=== PATIENT | female | born 1965 | race Caucasian/White ===

== ENCOUNTER 2023-02-23 12:59 | Emergency (ER) | payer OTHER ==
--- OUTSIDE RECORDS SUMMARY | 2023-02-23 13:02 | XMS REPORT | Continuity of Care Document ---
:1965 Author Organization [facility] t Address [address] [place] [address] Care Team Providers Name Role Phone Shala Gold MD Primary Care Physician Doctor Unassigned, [place] Attending Clinician Unavailable SHALA GOLD Attending Clinician Unavailable CHRIS SANTANA Attending Clinician Unavailable VIRGILIO RICHARDSON Attending Clinician Unavailable Shala Gold MD Attending Clinician 2, [facility] Attending Clinician Unavailable Chris Santana MD Attending Clinician Payers Payer Name Policy Type Policy Number Effective Date Expiration Date S ource Problems Condition Condition Condition Status Onset Resolution Last Treating Co mments Source Name Details Category Date Date Treatment Clinician Date Elevated Elevated Disease Active Unive rs blood blood 8-16 ity of pressure pressure 00:00: [place] reading reading 00 Medical without without Branch diagnosis diagnosis of of hypertensi hypertensi on on Chronic Chronic Disease Active Univers allergic allergic 8-16 ity of rhinitis rhinitis 00:00: [place] 00 Medical Branch Screening Screening Disease Active Uni vers for for 8-16 [place] malignant [place] of colon of colon Branch Need for Need for Disease Active Unive rs hepatitis hepatitis 8-16 ity of C C 00:00: [place] screening screening 00 Medi robbie test test Branch TSH TSH Disease Active Univers elevation elevation 8-16 ity of 00:00: [place] 00 Medical Branch Acquired Acquired Disease Active Unive rs hypothyroi hypothyroi 8-15 it y of dism dism 00:00: [address] Breast Breast Disease Active Univers cyst, left cyst, left 15 it y of 00:00: [address] Allergies, Adverse Reactions, Alerts Allergy Allergy Status Severity Reaction(s) Onset Inactive Treating Comm ents Source Name Type Date Date Clinician NO KNOWN Drug Active Univers ALLERGIE Class ity of S [facility] Social History Social Habit Start Date Stop Date Quantity Comments Source Sexual orientation Univer sity [facility] Exposure to 2021-11-18 2021-11-28 Not sure [facility] SARS-CoV-2 (event) 00:00:00 10:21:00 [facility] History of Social 2021-11-28 2021-11-28 Univers ity of function 00:00:00 00:00:00 [facility] Alcohol intake 2021-11-27 2021-11-27 Ex-drinker [facility] 00:00:00 00:00:00 (finding) [facility] Tobacco use and 2021-11-23 2021-11-23 Smokeless Universit y of exposure 00:00:00 00:00:00 tobacco non-user [facility] Sex Ass[birth year] Universit y of 00:00:00 00:00:00 [facility] Smoking Status Start Date Stop Date Source Never smoked tobacco [facility] Medications Ordered Filled Start Stop Current Ordering Indication Dosage Frequency Signature Comments Components Source Medication Medication Date Date Medication? Clinician (SIG) Name Name Levothyroxi 2021- No Take by Un kirby ne 75 mcg 11-28 mouth. ity of capsule 11:09: 00:00 [place] 11 :00 [facility] levothyroxi Yes [id number] 75ug Take 1 Univers ne 8-16 tablet by ity of (EUTHYROX) 00:00: mouth [place] 75 mcg 00 every Medical tablet morning. Branch levothyroxi Yes [id number] 75ug Take 1 Univers ne 8-16 tablet by ity of (EUTHYROX) 00:00: mouth [place] 75 mcg 00 every Medical tablet morning. Branch levothyroxi Yes [id number] 75ug Take 1 Univers ne 8-16 tablet by ity of (EUTHYROX) 00:00: mouth [place] 75 mcg 00 every Medical tablet morning. Branch levothyroxi 2021- No [id number] 75ug Take 1 [facility] 11-23 tablet by ity of (EUTHYROX) 00:00: 00:00 mouth [place] 75 mcg 00 :00 every Medical tablet morning. Branch Vital Signs Vital Name Observation Time Observation Value Comments Source Systolic blood 2021-11-28 15:21:00 144 mm[Hg] [facility]iver [facility] Diastolic blood 2021-11-28 15:21:00 85 [facility]Hg[facility] 2021-11-28 15:21:00 71 /min [facility] Body temperature 2021-11-28 15:21:00 36.72 [facility] Respiratory rate 2021-11-28 15:21:00 18 /min [facility] Body height 2021-11-28 15:21:00 172.7 cm [facility] Body weight 2021-11-28 15:21:00 86.728 kg [facility] BMI 2021-11-28 15:21:00 29.07 kg/m2 [facility] Oxygen saturation in 2021-11-28 15:21:00 98 /min [facility] Arterial blood by [facility] Pulse oximetry [place] Procedures Procedure Date / Time Performing Clinician Source Performed AUTHORIZATION FOR 2022-07-20 05:01:00 Doctor Unassigned, No [facility] RELEASE OF PHI Name [facility] Encounters Start End Encounter Admission Attending Care Care Encounter Source Date/Time Date/Time Type Type Clinicians Facility Department ID 2022-07-20 2022-07-20 Orders Doctor ALEJANDRE [id number] [id number] Univers 00:00:00 00:00:00 Only UnassignedPOWER [id number] [facility] [id number] Jesu as [id number] [address] 2022-02-28 2022-02-28 Outpatient R KVNG [facility] [id number] Univers 09:20:00 09:20:00 SHALA winters [facility] 2022-02-28 2022-02-28 Outpatient R KVNG [facility] [id number] Univers 09:20:00 09:20:00 SHALA singh [facility] 2021-12-26 2021-12-26 Outpatient R SETHERFELIXN [facility] [id number] Univers 00:00:00 00:00:00 ity [facility] 2021-12-12 2021-12-12 Outpatient R RICHARDSON [facility] [id number] Univers 10:15:00 10:15:00 VIRGILIO azevedodella o f [facility] 2021-11-29 2021-11-29 Patient Doctor PILI [id number] Univers 00:00:00 00:00:00 Secure Msg Unassigned, P[place] [id number] ity [facility] [id number] Jesu as [id number] [address] 2021-11-28 2021-11-28 [facility] [id number] Univers 10:00:00 11:22:42 Visit Shala COLLIER [id number] i ty [facility] [id number] [place] PROF[place] [phone] [place] dical [address] 2021-11-28 2021-11-28 [facility] [id number] Univers 10:00:00 11:22:42 SHALA singh [facility] 2021-11-28 2021-11-28 Outpatient R KVNG [facility] [id number] Univers 10:00:00 11:22:42 SHALA singh [facility] 2021-11-28 2021-11-28 Outpatient R KVNG [facility] [id number] Univers 10:00:00 10:00:00 SHALA singh [facility] 2021-11-27 2021-11-27 Test Desk Operator 2, [facility] [id number] Univers 09:15:00 09:30:00 Visit Chris Santana [id number] ity [facility] [id number] [place] [phone] Me dical NAL [address] [facility] 2021-11-27 2021-11-27 Outpatient R CHRIS SANTANA [facility] [id number] Univers 09:15:00 09:15:00 ity of [facility] 2021-11-27 2021-11-27 Outpatient R CHRIS SANTANA [facility] [id number] Univers 09:15:00 09:15:00 ity of [facility] 2021-11-23 2021-11-23 Outpatient R CHRIS SANTANA [facility] [id number] Univers 14:00:00 14:55:28 ity [facility] 2021-11-23 2021-11-23 Outpatient R CHRIS SANTANA [facility] [id number] Univers 14:00:00 14:55:28 ity of [facility] 2021-11-23 2021-11-23 Office Chris Santana [facility] [id number] Univers 14:00:00 14:55:28 [facility] [id number] i ty [place] [id number] [phone] [place] dical NAL [address] [facility] 2021-11-23 2021-11-23 Orders Doctor PILI [id number] Univers 00:00:00 00:00:00 Only Unassigned, [place] [id number] ity of [place] [facility] [id number] Jesu as [phone] [place] [address] Branch Results This patient has no known results.
[2023-02-23] MEDS ORDERED: MORPHINE 4 MG/ML SYR ONE (13:51)
[2023-02-23] MEDS ORDERED: ONDANSETRON 4 MG/2 ML VIAL ONE (13:51)
[2023-02-23] MEDS ORDERED: NA CHLORIDE 0.9% 1,000 ML ONE (13:51)
[2023-02-23] MEDS ORDERED: KETOROLAC 30 MG/ML INJ ONE (13:51)
[2023-02-23 14:01] LABS: Absolute Lymphocytes (CBC) 1.1 K/uL (0.7-4.9); Hematocrit 36.2 % (36.0-45.0); Lymphocytes % 13.1 % (15.3-44.8); MCV 85.5 fL (80-100); MPV 7.6 fL (7.6-11.3); Platelets 379 thou/uL (152-406); RBC Red Blood Cell Count 4.23 M/uL (3.86-4.86)
[2023-02-23 14:19] LABS: Albumin 3.5 g/dL (3.4-5.0); Bilirubin Total 0.3 mg/dL (0.2-1.0); Potassium 3.9 mEq/L (3.5-5.1)
--- NOTE | 2023-02-23 14:26 | RAD REPORT ---
EXAM DESCRIPTION: CT - Abdomen Pelvis Wo Contrast - 02/23/2023 1:40 pm CLINICAL HISTORY: ABD PAIN COMPARISON: No comparisons TECHNIQUE: Thin cut axial CT imaging of the abdomen and pelvis was performed without IV contrast. Mu ltiplanar reformats were generated and reviewed. All CT scans are performed using dose optimization technique as appropriate and may include automated exposure control or mA/KV adjustment according to patient size. FINDINGS: Small right layering pleural effusion. Left subsegmental atelectasis The liver, spleen, adrenal glands, and pancreas show no suspicious findings. Gallbladder and biliary tree are also without suspicious finding. Symmetric renal contour, without suspicious parenchymal findings within limits of noncontrast techniq ue. Lseo-gs-rqvptnen right hydroureteronephrosis. The dilated ureter transitions to nondistended uret er at the level of the mid to distal ureter on axial images 66-67, likely due to 4 millimeter calcifi c density suggesting a calculus, rather than a focus of atherosclerotic calcification. No other nonob structing right renal calculi at the upper pole largest measuring 6 millimeter. No dilated bowel loops or bowel wall thickening. No free air, free fluid or inflammatory stranding. N o hernia, mass or bulky lymphadenopathy. Retroverted uterus. 4.2 cm anterior wall fibroid. The urinar y bladder is without significant finding. No suspicious bony findings. IMPRESSION: Mild to moderate right hydroureteronephrosis. Suspected 4 millimeter mid to distal right ureter obstructing calculus. Other nonobstructing right upper pole renal calculi up to 6 millimeter. Small right layering pleural effusion and other incidental findings as above. The findings were communicated to Yohan Villarreal on 02/23/2023 at 14:21 hours.
[2023-02-23 15:16] LABS: Specific Gravity 1.005 (1.005-1.030); Urine Bacteria <20 /HPF (<20); Urine Bilirubin NEGATIVE (Negative); Urine Blood 1+ (Negative); Urine Clarity Clear (Clear); Urine Color Colorless (Yellow); Urine Glucose NEGATIVE (Negative); Urine Protein NEGATIVE (Negative); Urine RBC <5 /HPF (None Seen); Urine Urobilinogen Normal (Normal); Urine pH 6.5 (5.0-7.0)
--- NOTE | 2023-02-23 15:26 | EDPHYS ---
Physician Documentation [facility] Name: Astrid Ellis Age: 57 yrs Sex: Female : 1965 Arrival Date: 02/23/2023 Time: 12:59 Bed 7 Private MD: ED Physician Yohan Villarreal HPI: 02/23 13:39 This 57 yrs old Female presents to ER via Ambulatory with complaints of RIGHT ec2 SIDE PAIN. 13:39 Patient arrives today due to concern for right flank pain. Patient reports that she has ec2 been having intermittent right flank pain for the past 1.5 weeks. Patient reports that the pain is intermittent without specific relieving exacerbating factors. Patient reports some occasional nausea with the pain. Denies any vomiting or diarrhea, denies any urinary problems. Patient reports no similar types of pain. Patient reports no abdominal pain. She reports no previous abdominal surgeries.. Historical: - Allergies: 13:16 No Known Allergies; hb - PMHx: 13:16 None; hb - PSHx: 13:16 skin graft; hb - Immunization history:: Client reports having NOT received the Covid vaccine. - Social history:: Smoking status: Patient denies any tobacco usage or history of. ROS: 13:39 Constitutional: as per hpi ec2 Exam: 13:39 Constitutional: GEN: NAD Head: atraumatic Eyes: EOMI Ears: External ears are ec2 normal. CV: regular rate LUNGS: no respiratory distress ABD: non-distended, soft, nontender, no guarding, nonrigid, right and left CVA without TTP SKIN: no evidence of rashes MSK: no evidence of trauma NEURO: moves all extremities equally Vital Signs: 13:17 BP 148 / 95; Pulse 95; Resp 17; Temp 98.8; Pulse Ox 100% on R/A; Weight 84.82 kg; hb Height 5 ft. 8 in. ; Pain 9/10; 15:57 BP 145 / 78; Pulse 91; Resp 18; Temp 98; Pulse Ox 99% on R/A; ph 13:17 Body Mass Index 28.43 (84.82 kg, 172.72 cm) hb 13:17 Pain Scale: Adult hb MDM: 13:17 Patient medically screened. ec2 13:39 ED course: Patient arrives today for evaluation of right flank pain. Examination ec2 remarkable for abdominal findings as noted above. Will obtain lab work, CT abdomen pelvis, treat the patient's pain and reassess the patient. Currently considering process such as pyelonephritis, urolithiasis, low suspicion for intra-abdominal infection. . 14:34 ED course: CBC, metabolic profile are reassuring, lipase within normal ranges. 4 mm ec2 nonobstructing ureteral stone noted. Incidental pleural effusion noted. . 14:52 Data reviewed: vital signs. ED course: On reassessment patient with resolution of her ec2 pain. . 15:26 ED course: Urine noninfectious appearing. Will discharge home, return precautions ec2 given.. 02/23 13:29 Order name: CBC with Diff; Complete Time: 14:34 ec2 02/23 13:29 Order name: CMP; Complete Time: 14:34 ec2 02/23 13:29 Order name: Lipase; Complete Time: 14:34 ec2 02/23 14:53 Order name: UAM; Complete Time: 15:25 ec2 02/23 13:29 Order name: CT Abd/Pelvis - Without Contrast; Complete Time: 14:34 ec2 02/23 13:29 Order name: IV Saline Lock; Complete Time: 13:59 ec2 02/23 13:29 Order name: Labs collected and sent; Complete Time: 13:59 ec2 Administered Medications: 13:59 Drug: NS 0.9% IV 1000 ml IV at 1 bolus Per protocol; 1000 mL bolus Route: IV; Rate: 1 ph bolus; Site: right antecubital; 15:57 Follow up: Response: No adverse reaction; IV Status: Completed infusion; IV Intake: ph 1000ml 13:59 Drug: TORadol - Ketorolac IVP 15 mg IVP once Route: IVP; Site: right antecubital; ph 15:58 Follow up: Response: No adverse reaction; Pain is decreased ph 13:59 Drug: Ondansetron IVP 4 mg IVP once; over 2 minutes Route: IVP; Site: right antecubital;ph 15:57 Follow up: Response: No adverse reaction ph 13:59 Drug: morphine IVP or IV 4 mg IVP once over 4 mins Route: IVP; Infused Over: 4 mins; ph Site: right antecubital; 15:58 Follow up: Response: No adverse reaction; Pain is decreased ph Disposition Summary: 02/23/23 15:26 Discharge Ordered Notes: Location: Home ec2 Condition: Stable ec2 Diagnosis - Ureteral Stone ec2 Followup: ec2 - With: Marcel Billings MD - When: - Reason: Recheck today's complaints Discharge Instructions: - Discharge Summary Sheet ec2 - Kidney Stones, Rarb-ha-Ddsc ec2 Forms: - Medication Reconciliation Form ec2 - Thank You Letter ec2 - Antibiotic Education ec2 - Prescription Opioid Use ec2 - Patient Portal Instructions ec2 - Leadership Thank You Letter ec2 Prescriptions: - acetaminophen-codeine 300-15 mg Oral tablet - take 1 tablet ORAL route every 4 hours; 20 tablet; Refills: 0, Product ec2 Selection Permitted - tamsulosin 0.4 mg Oral capsule - take 1 capsule ORAL route once; 14 capsule; Refills: 0, Product Selection ec2 Permitted Signatures: Dispatcher [employer] Katerine Lane RN RN ph Baxter, Heather, RN RN hb Corral, Edwin, MD MD ec2 Corrections: (The following items were deleted from the chart) 14:54 14:52 ED course: On reassessment patient with resolution of her pain. Will discharge ec2 home with urology follow-up and prescription for pain medications. Presentation consistent with ureterolithiasis.. ec2
--- NOTE | 2023-02-23 15:26 | ER ---
Nurse's Notes [facility] Name: Astrid Ellis Age: 57 yrs Sex: Female : 1965 Arrival Date: 02/23/2023 Time: 12:59 Bed 7 Private MD: Diagnosis: Ureteral Stone Presentation: 02/23 13:17 Chief complaint: Patient states: R mid back pain for at least a month. Worse for 3 hb days. No fever or cough. Reports having to force herself to urinate but denies dysuria. Coronavirus screen: Vaccine status: Patient reports being unvaccinated. Client denies travel out of the [place] in the last 14 days. At this time, the client does not indicate any symptoms associated with coronavirus-19. Ebola Screen: Patient denies travel to an Ebola-affected area in the 21 days before illness onset. Initial Sepsis Screen: Does the patient meet any 2 criteria? No. Patient's initial sepsis screen is negative. Does the patient have a suspected source of infection? No. Patient's initial sepsis screen is negative. Risk Assessment: Do you want to hurt yourself or someone else? Patient reports no desire to harm self or others. Onset of symptoms was January 13, 2023. 13:17 Method Of Arrival: Ambulatory hb 13:17 Acuity: ZINA 3 hb Historical: - Allergies: 13:16 No Known Allergies; hb - PMHx: 13:16 None; hb - PSHx: 13:16 skin graft; hb - Immunization history:: Client reports having NOT received the Covid vaccine. - Social history:: Smoking status: Patient denies any tobacco usage or history of. Screenin:[facility] ED Fall Risk Assessment (Adult) History of falling in the last 3 months, ph including since admission No falls in past 3 months (0 pts) Score/Fall Risk Level 0 - 2 = Low Risk Oriented to surroundings, Maintained a safe environment, Provided non-skid footwear, Used ambulatory aids as needed (educated on \T\ assisted with). Abuse screen: Denies threats or abuse. Denies injuries from another. Nutritional screening: No deficits noted. Tuberculosis screening: No symptoms or risk factors identified. Assessment: 14:00 General: Appears in no apparent distress. uncomfortable, Behavior is calm, cooperative, ph appropriate for age. Pain: Complains of pain in posterior aspect of right lateral abdomen and anterior aspect of right lateral abdomen. Neuro: Garcia Agitation-Sedation Scale (RASS): +1 Restless Level of Consciousness is awake, alert, obeys commands, Oriented to person, place, time, situation. Cardiovascular: Capillary refill < 3 seconds in bilateral fingers Patient's skin is warm and dry. Respiratory: Airway is patent Respiratory effort is even, unlabored. GI: No signs and/or symptoms were reported involving the gastrointestinal system. Patient currently denies abdominal pain, nausea, vomiting. : Reports pain in right flank(s). Derm: Skin is pink, warm \T\ dry. Vital Signs: 13:17 BP 148 / 95; Pulse 95; Resp 17; Temp 98.8; Pulse Ox 100% on R/A; Weight 84.82 kg; hb Height 5 ft. 8 in. ; Pain 9/10; 15:57 BP 145 / 78; Pulse 91; Resp 18; Temp 98; Pulse Ox 99% on R/A; ph 13:17 Body Mass Index 28.43 (84.82 kg, 172.72 cm) hb 13:17 Pain Scale: Adult hb ED Course: 13:01 Patient arrived in ED. kj1 13:02 Yohan Villarreal MD is Attending Physician. ec2 13:16 Arm band placed on Patient placed in an exam room, on a stretcher. hb 13:19 Triage completed. hb 13:28 Hilary Shelton, RN is Primary Nurse. ss 13:31 Katerine Joyce, RN is Primary Nurse. ph 13:42 CT Abd/Pelvis - Without Contrast In Process Unspecified. EDMS 14:00 Initial lab(s) drawn, by me, sent to lab. Inserted saline lock: 22 gauge in right ph antecubital area, using aseptic technique. Blood collected. 15:26 Marcel Billings MD is Referral Physician. ec2 15:58 Patient has correct armband on for positive identification. Bed in low position. Call ph light in reach. Side rails up X 1. 15:58 No provider procedures requiring assistance completed. IV discontinued, intact, ph bleeding controlled, No redness/swelling at site. Pressure dressing applied. Administered Medications: 13:59 Drug: NS 0.9% IV 1000 ml IV at 1 bolus Per protocol; 1000 mL bolus Route: IV; Rate: 1 ph bolus; Site: right antecubital; 15:57 Follow up: Response: No adverse reaction; IV Status: Completed infusion; IV Intake: ph 1000ml 13:59 Drug: TORadol - Ketorolac IVP 15 mg IVP once Route: IVP; Site: right antecubital; ph 15:58 Follow up: Response: No adverse reaction; Pain is decreased ph 13:59 Drug: Ondansetron IVP 4 mg IVP once; over 2 minutes Route: IVP; Site: right antecubital;ph 15:57 Follow up: Response: No adverse reaction ph 13:59 Drug: morphine IVP or IV 4 mg IVP once over 4 mins Route: IVP; Infused Over: 4 mins; ph Site: right antecubital; 15:58 Follow up: Response: No adverse reaction; Pain is decreased ph Medication: 15:55 VIS not applicable for this client. ph Intake: 15:57 IV: 1000ml; Total: 1000ml. ph Outcome: 15:26 Discharge ordered by MD. [email or web address] 15:58 Discharged to home ambulatory, with significant other, ph 15:58 Condition: good 15:58 Discharge instructions given to patient, Instructed on discharge instructions, follow up and referral plans. medication usage, Demonstrated understanding of instructions, follow-up care, medications, Prescriptions given X 2, 15:59 Patient left the ED. ph Signatures: Dispatcher [employer] Hilary Blankenship RN RN ss Hall, Patricia, RN RN ph Baxter, Heather, RN RN hb Jackson, Kandis kj1 Yohan Villarreal MD MD ec2
[2023-02-23 16:23] VITALS: BP 145/78; TEMP 98; O2SAT 99
== END 2023-02-23 15:59 | disposition home or self-care (01) ==
LOC: ER 12:59
DX: N20.1 Calculus of ureter (principal)
CPT/HCPCS: 96361; 85025; 81001; 36415; 83690; 80053; 74176; 96375; 96374; 99284; J2405; J7030